=== PATIENT | female | born 1975 | race Caucasian/White ===

== ENCOUNTER 2019-03-06 15:14 | Outpatient (CLI) | payer BC, SELFPAY ==
--- NOTE | 2019-03-07 08:15 | DI.RAD_ITS ---
SYMPTOM/DIAGNOSIS: ACUTE LT KNEE PAIN, M25.562, H/O FALL LEFT KNEE: Three views were obtained. No bony or soft tissue abnormality is seen.
== END 2019-03-06 15:34 ==
PROVIDERS: PCP Nurse Practitioner Family; Visit Provider Nurse Practitioner Family
DX: M25.562 Pain in left knee (principal)
CPT/HCPCS: 73562

== ENCOUNTER 2020-08-06 10:11 | Outpatient (REF) | payer BC, SELFPAY ==
--- NOTE | 2020-08-06 09:37 | SOFT_PTH ---
PATIENT: Desiree Linares LOC: [facility]#:[id number] AGE/SX: 44/F ROOM: RE08/06/[address]: Debra Raymundo : 1975 BED: DIS: 08/06/2020 SPEC #: [id number] RECD: 08/09/20 12:48 STATUS: ANDREW REBertrand #: [id number] MICHEL: 08/06/20 09:[address]: Debra Raymundo DEPT: Surgical Specimen RECD BY: Adrianne Dennis Tissues: 1 - SOFT TISSUE [facility] Procedures: GROSS AND MICRO LEVEL 3 Comments: [id number]
== END 2020-08-06 10:31 ==
LOC: NCHCN 10:11
PROVIDERS: PCP Nurse Practitioner Family; Visit Provider Nurse Practitioner Family
DX: L91.8 Other hypertrophic disorders of the skin (principal)
CPT/HCPCS: 88304

== ENCOUNTER 2020-08-31 14:44 | Outpatient (REF) | payer BC, SELFPAY ==
[2020-09-03 16:25] LABS: Patient Race White; SARS-CoV-2 RNA Undetected (Undetected); SARS-CoV-2 Specimen Source Nasal
== END 2020-08-31 15:04 ==
LOC: NCHCN 14:44
PROVIDERS: PCP Nurse Practitioner Family; Visit Provider Physician Assistant
DX: J06.9 Acute upper respiratory infection, unspecified (principal)
CPT/HCPCS: U0003

== ENCOUNTER 2021-04-29 18:04 | Outpatient (REF) | payer BC, SELFPAY ==
[2021-04-30 08:51] LABS: Abs Immature Grans 0.01 10^3/uL (0.0-0.06); Absolute Basophil Count 0.04 10^3/uL (0.0-0.2); Absolute Eosinophil Count 0.16 10^3/uL (0.0-0.7); Absolute Lymphocyte Count 2.29 10^3/uL (1.2-3.4); Absolute Monocyte Count 0.41 10^3/uL (0.1-0.8); Absolute Neutrophil Count 3.02 10^3/uL (1.2-6.7); Basophils % 0.7; Eosinophils % 2.7; HCT 42.1 % (36.0-46.0); HGB 14.1 g/dL (11.2-15.7); Immature Grans % 0.2; Lymphocytes % 38.6; MCH 29.3 pg (27.0-33.0); MCHC 33.5 % (32.0-36.0); MCV 87.3 fL (80-95); MPV 9.9 fL (8.0-11.0); Monocytes % 6.9; Neutrophils % 50.9; Nucleated RBC 0 %; Platelet Count 264 10^3/uL (130-400); RBC 4.82 10^6/uL (3.93-5.22); RDW 12.1 % (11.7-14.6); RDW-SD 38.8 fL; WBC 5.93 10^3/uL (4.4-10.8)
[2021-04-30 09:28] LABS: Anion Gap 9.5 mmol/L (3-11); BUN 10 mg/dL (7-18); CO2 25.5 mmol/L (21.0-32.0); Calcium 9.1 mg/dL (8.5-10.1); Chloride 107 mmol/L (98-107); Estimated GFR 59.96 (mL/min/1.73m2); Glucose 89 mg/dL (74-106); Potassium 4.2 mmol/L (3.5-5.1); Sodium 142 mmol/L (136-145)
== END 2021-04-29 18:05 | disposition home or self-care (01) ==
LOC: LBN 18:04
PROVIDERS: PCP Nurse Practitioner Family; Visit Provider Physician Assistant Medical
DX: R42 Dizziness and giddiness (principal)
CPT/HCPCS: 80048; 85025

== ENCOUNTER 2021-07-04 19:15 | Outpatient (REF) | payer BC, SELFPAY | END 2021-07-04 19:16 | disposition home or self-care (01) | LOC: NCHCN 19:15 | PROVIDERS: PCP Nurse Practitioner Family; Visit Provider Family Medicine | DX: R35.0 Frequency of micturition (principal) | CPT/HCPCS: 87077; 87086; 87186 ==

== ENCOUNTER 2021-08-16 10:47 | Outpatient (REF) | payer BC, SELFPAY ==
--- NOTE | 2021-08-16 10:30 | PAPFT_PTH ---
PATIENT: Desiree Linares LOC: [facility] U#:[id number] AGE/SX: 45/F ROOM: RE08/16/[address]: JOANA Harley : 1975 BED: DIS: 08/16/2021 SPEC #: [id number] RECD: 08/16/21 12:55 STATUS: ANDREW REQ #: [id number] MICHEL: 08/16/21 10:[address]: Bronwyn Mosley DEPT: [facility] Cytology RECD BY: Adrianne Dennis ENTERED: 08/16/21 12:55 SP TYPE: PAPFT OTHR DR: Debra Raymundo Tissues: 1 - CX/ENDOCX FOR PAP SMEARS Procedures: PAP THIN PREP/UVM Screening HPV DNA PROBE Comments: [id number]
[2021-08-17 16:09] LABS: Chlamydia Result Negative (Negative); GC Result Negative (Negative)
== END 2021-08-16 10:48 | disposition home or self-care (01) ==
LOC: LBN 10:47
PROVIDERS: PCP Nurse Practitioner Family; Visit Provider Nurse Practitioner Family
DX: Z11.3 Encounter for screening for infections with a predominantly sexual mode of transmission (principal); Z12.4 Encounter for screening for malignant neoplasm of cervix; Z11.51 Encounter for screening for human papillomavirus (HPV)
CPT/HCPCS: 87491; 87591; 88142; 87624

== ENCOUNTER 2021-10-07 01:35 | Outpatient (CLI) | payer BC, SELFPAY ==
--- NOTE | 2021-10-07 15:45 | DI.MAMMO_ITS ---
Exam(s) MAMMO SCREENING EXAM: MAMMO SCREENING CLINICAL HISTORY: screening,Z12.39. TECHNIQUE: Bilateral full field digital CC and MLO mammographic images were obtained with 3D tomosyn thesis and utilizing computer aided detection (CAD). COMPARISON: Prior mammograms dating back to 2015, the most recent being January 2018. Prior left breast ultrasound performed 03/27/2016 was also reviewed. FINDINGS: There are no CAD designations. Asymmetric density medially in left breast is unchanged from prior studies. There are no new spiculated masses nor malignant appearing microcalcification groups. There is no significant architectural distortion nor skin thickening-retraction. IMPRESSION: Stable benign-appearing findings. No radiographic evidence of malignancy BI-RADS Category 2 - Benign Findings Breast Density - Category B - Scattered areas of fibroglandular density Breast density Category C or D implies that the patient has dense breast tissue. Dense breast tissue can make it harder to find cancer on a mammogram. Dense breast tissue is also associated with an incr eased risk of breast cancer. This information about the result of the mammogram report was provided to the patient to raise their awareness. Use this report when you speak with the patient about their risks for breast cancer, which includes their family history. At that time, you may recommend additional screening tests (Ultrasoun d or MRI) as these tests may add significant information. A negative radiographic report should not delay biopsy if a dominant or clinically suspicious mass is present. Up to ten percent of cancers are not identified on mammography. A negative report may reinforce clinical impression. Adenosis and dense breasts may obscure an underlying neoplasm. False positive reports average 6 to 10%. Patient will receive a letter notifying them of these results.
== END 2021-10-07 01:55 ==
PROVIDERS: PCP Nurse Practitioner Family; Visit Provider Nurse Practitioner Family
DX: Z12.31 Encounter for screening mammogram for malignant neoplasm of breast (principal)
CPT/HCPCS: 77063; 77067

== ENCOUNTER 2021-10-26 13:59 | Outpatient (REF) | payer BC, SELFPAY ==
[2021-10-26 20:04] LABS: TSH (W/Ref FT4) 0.92 uIU/mL (0.36-3.74)
[2021-10-28 10:49] LABS: Hepatitis C Ab w Rflx HCV PCR Negative (Negative)
[2021-10-28 14:25] LABS: HIV-1/2 Ag & Ab Screen Reactive (Negative)
[2021-10-31 09:10] LABS: HIV 1 Ab Diff Negative (Negative); HIV 2 Ab Diff Negative (Negative)
== END 2021-10-26 14:00 | disposition home or self-care (01) ==
LOC: NCHCN 13:59
PROVIDERS: PCP Nurse Practitioner Family; Visit Provider Family Medicine
DX: Z00.00 Encounter for general adult medical examination without abnormal findings (principal); R63.4 Abnormal weight loss; Z11.4 Encounter for screening for human immunodeficiency virus [HIV]; Z11.59 Encounter for screening for other viral diseases
CPT/HCPCS: 86701; 86702; 86803; 87389; 84443

== ENCOUNTER 2021-11-28 15:21 | Outpatient (REF) | payer BC, SELFPAY ==
[2021-11-28 16:07] LABS: Bilirubin Negative (Negative); Blood Large (Negative); Clarity Sl Cloudy (Clear); Glucose Negative (Negative); Ketones Negative (Negative); Leukocyte Esterase Small (Negative); Nitrite Negative (Negative); Specific Gravity 1.025 (1.005-1.025); Urobilinogen 0.2 EU/dL (Up TO 0.2); pH 6.5 (5-8)
[2021-11-28 16:13] LABS: Bacteria Moderate HPF (Negative); C & S Indicated? No/Sq. Contamination; Casts Negative LPF (Negative); Crystals Negative HPF (Negative); Epithelial Cells Many HPF (Negative); Mucus Trace (Negative); RBC >50 HPF (0-2); WBC 20-50 HPF (0-5)
== END 2021-11-28 15:22 | disposition home or self-care (01) ==
LOC: NCHCN 15:21
PROVIDERS: PCP Nurse Practitioner Family; Visit Provider Nurse Practitioner Family
DX: R30.0 Dysuria (principal)
CPT/HCPCS: 81003; 81015

== ENCOUNTER 2022-10-25 10:37 | Outpatient (REF) | payer BC, SELFPAY ==
[2022-10-27 11:16] LABS: COVID-19 RT-PCR UVMMC Result Negative (Negative)
== END 2022-10-25 10:38 | disposition home or self-care (01) ==
LOC: LBN 10:37
PROVIDERS: PCP Nurse Practitioner Family; Visit Provider Physician Assistant Medical
DX: Z20.822 Contact with and (suspected) exposure to COVID-19 (principal); R05.8 Other specified cough
CPT/HCPCS: U0003

== ENCOUNTER 2023-01-31 09:56 | Outpatient (REF) | payer BC, SELFPAY ==
[2023-01-31 15:10] LABS: Calculated LDL 136 mg/dL (<100); Cholesterol 207 mg/dL (<200); HDL Cholesterol 40 mg/dL (40-60); Triglyceride 158 mg/dL (<150)
== END 2023-01-31 09:57 | disposition home or self-care (01) ==
LOC: NCHCN 09:56
PROVIDERS: PCP Nurse Practitioner Family; Visit Provider Family Medicine
DX: Z00.00 Encounter for general adult medical examination without abnormal findings (principal); Z13.220 Encounter for screening for lipoid disorders
CPT/HCPCS: 80061

== ENCOUNTER → 2023-08-13 04:04 | Outpatient (CLI) | payer BC, SELFPAY ==
--- NOTE | 2023-08-13 | DI.MAMMO_ITS ---
Exam(s) MAMMO SCREENING EXAM: MAMMO SCREENING CLINICAL HISTORY: SCREENING, Z12.31 TECHNIQUE: Mammograms were interpreted according to the usual protocol including computer analysis w [employer] CAD system, tomosynthesis and C-view imaging. COMPARISON: 2015 through 2020 FINDINGS: The breasts are composed of scattered fibroglandular densities, Breast Density category B. No suspicious masses or suspicious microcalcifications are seen. No skin thickening or abnormal axillary lymph nodes are seen. There has been no significant change from prior exams. IMPRESSION: BI-RADS Category 1, Negative mammogram Yearly screening mammography is recommended. Breast Density - Category B, scattered fibroglandular densities. A negative radiographic report should not delay biopsy if a dominant or clinically suspicious mass is present. Up to ten percent of cancers are not identified on mammography. A negative report may reinforce clinical impression. Adenosis and dense breasts may obscure an underlying neoplasm. False positive reports average 6 to 10%. Patient will receive a letter notifying them of these results.
== END ==
PROVIDERS: PCP Nurse Practitioner Family; Visit Provider Family Medicine
DX: Z12.31 Encounter for screening mammogram for malignant neoplasm of breast (principal)
CPT/HCPCS: 77063; 77067

== ENCOUNTER 2023-12-12 12:07 | Outpatient (REF) | payer BC, SELFPAY ==
[2023-12-12 15:07] LABS: HCT 41.4 % (36.0-46.0); HGB 14.3 g/dL (11.2-15.7); MCHC 34.5 % (32.0-36.0); MCV 90 fL (80-95); Platelet Count 259 10^3/uL (130-400); RBC 4.62 10^6/uL (3.93-5.22); RDW 11.9 % (11.7-14.6); RDW-SD 38.6 fL; WBC 5.99 10^3/uL (4.4-10.8)
[2023-12-12 15:55] LABS: TSH (W/Ref FT4) 1.07 uIU/mL (0.36-3.74)
== END 2023-12-12 12:08 | disposition home or self-care (01) ==
LOC: NCHCN 12:07
PROVIDERS: PCP Family Medicine; Visit Provider Family Medicine
DX: Z13.220 Encounter for screening for lipoid disorders (principal); Z00.00 Encounter for general adult medical examination without abnormal findings
CPT/HCPCS: 85027; 84443

== ENCOUNTER 2024-03-14 09:34 | Day surgery (SDC) | payer BC, SELFPAY ==
--- NOTE | 2024-03-13 16:41 | COLE_ITS ---
Date of service: 03/14/24 Time of Service: 12:15 Colonoscopy Report Date of procedure: 03/14/24 Pre-op diagnosis general: CRC screening Post-op diagnosis procedure note: other (Adenomatous polyp) Surgeon: Marisol Perez Anesthesia Type: General:No Airway Estimated blood loss (mL): 1 Pathology: other Complications: None Disposition: same day Prep: Miralax/Dulcolax Retraction Time: 17 Procedure Description: After informed consent was obtained the patient was taken to the procedure room and placed in a left decubitous position. Monitors were applied and a time out was done. The patients name, date of , procedure, allergies to medications and metal in their body was reviewed. The patient was then sedated. Once sedated and comfortable a rectal exam was done. External exam was normal. Internal exam revealed a normal sphincter tone and no palpable masses. The scope was then introduced and retrofelexed. Grade II internal hemorrhoids X 1 column were identified. The scope was then advanced to the cecum w/out difficulty. The TI and appendiceal orifice were identified. The scope was then slowly retracted over 17 minutes back into the rectum. She had multiple polyps that we removed. She had 6 polyps that we removed. All of them are flat 0.5 cm polyps. She had 1 removed at 70 cm, 1 removed at 80 cm, 2 removed at 20 cm, and 2 removed in the rectum. All specimens are retrieved and no bleeding is noted. There is no signs of any diverticula or AVMs. The mucosa is pink and healthy with a normal vascular pattern. The scope was removed and the patient was woken up and taken back to Same day surgery in stable condition. The patient tolerated the procedure well and there were no immediate complications. Follow up: The patient should follow up in 5-7 years unless they develop changes in bowel habits or other new gastrointestinal complaints. Hartford Bowel Prep Hartford Bowel Prep Right Colon: 3 Left Colon: 3 Transverse Colon: 3 Total Score: 9
--- NOTE | 2024-03-13 16:42 | PDOC.DSDIS_ITS ---
Date of service: 03/14/24 Time of Service: 12:19 Discharge Plan Disposition Patient Disposition: Home Condition: Good Discharge Details Reason For Visit: CRC screening Attending Provider: Marisol Perez Primary Care Provider: Maggie Cruz Home Meds and New Rx's Prescriptions: Continued albuterol sulfate [ProAir HFA] 90 mcg/actuation HFA aerosol inhaler 200 puff Inhalation Q6H PRN (Reason: shortness of breath or wheezing) Rx Instructions: with spacer rizatriptan 10 mg tablet,disintegrating See Rx Instructions PO .COMPLEX Rx Instructions: take 1 tab at onset of headache; if no relief may repeat 1 tab after at least 2 hrs; max = 3 tabs/24 hr PO Mirena 20 mcg/24 hours (7 yrs) 52 mg intrauterine device 1 insert intrauterine ONCE Qty: 1 0RF Rx Instructions: as a single dose venlafaxine 37.5 mg capsule,extended release 24hr 75 mg PO DAILY budesonide-formoterol [Symbicort] 80-4.5 mcg/actuation HFA aerosol inhaler 2 puff inhalation BID PRN loratadine [Allergy Relief (loratadine)] 10 mg tablet 10 mg PO DAILY PRN cholecalciferol (vitamin D3) 25 mcg (1,000 unit) capsule 25 mcg PO DAILY ibuprofen [Advil] 200 mg tablet 200 mg PO Q6H PRN bupropion HCl [Wellbutrin] 100 mg tablet 300 mg PO DAILY Discontinued bisacodyl [Dulcolax (bisacodyl)] 5 mg tablet,delayed release (DR/EC) 5 mg PO ONCE Qty: 4 0RF Rx Instructions: Take per colonoscopy instructions provided by ordering providers office polyethylene glycol 3350 17 gram/dose powder 17 g PO ONCE Qty: 238 0RF Rx Instructions: Take per colonoscopy instructions provided by ordering providers office Discharge Instructions Additional Instructions: DSU Colonoscopy Post- Op Instructions Instructions for Everyone who is given Anesthesia: For your safety, please do the following for the next twenty-four (24) hours: *Do Not operate a motor vehicle (car, truck, motorcycle, etc.) *Do Not drink alcoholic beverages or use any recreational drugs for the first 24 hours or while taking pain medications. The medications in your body may have a reaction that can be dangerous. *Do Not make any important decisions or sign any important papers. Findings: X 6 polyps Follow up: My office will send you a letter in 2 to 3 weeks time with the results and when we want to repeat the colonoscopy, most likely 5 to 7 years. 1. No lifting over 20 pounds or strenuous activity for the first 24 hours after your procedure. After 24 hours there are no restrictions on your activity but you may feel fatigued for a few days. 2. After you arrive home you may have a light meal and return to your normal diet as you can tolerate it without feeling sick to your stomach. 3. You may have a bloated, gaseous feeling in your belly (abdomen) after a colonoscopy. Passing gas and belching will help. Walking or lying down on your left side with your knees flexed may relieve the discomfort. Call the office at [phone] (Office) or [phone] (Hospital) right away if you notice any of the following: a.Vomiting of blood or ?coffee ground stools?. b.Rectal bleeding 1Tbsp, blood clots or continuous bleeding. c.Severe belly (abdominal) pain. d.A hard distended belly (abdomen) and an inability to pass gas. 4. Please don?t expect to have a normal BM (bowel movement) for 2-3 days after your procedure. 5. If there are questions regarding the findings of your procedure, please contact your doctor 6. If you are unable to contact your doctor with a problem, contact the hospital at [phone]. 7. Continue all your regular medications unless directed otherwise. I understand the above instructions and have no questions. Signature of Patient or Adult Escort Name of Responsible Adult Escort Signature of Nurse Date/Time Stand Alone Forms: Anesthesia Discharge Scott Desai (DSU) Activity:: see above Diet:: see above Discharge Orders Discharge Orders: Discharge Order (Routine); Ordered 03/14/24 Ordered By: Marisol Perez Discharge Data Discharge Date/Time-TO BE ENTERED AT DEPARTURE: 03/14/24 13:21 DS: Diagnosis Discharge Diagnosis (1) Migraine with aura: (2) Depression: Status: Chronic (3) ADHD: Status: Acute (4) Anxiety: Status: Chronic (5) Asthma: Status: Chronic (6) Screening for malignant neoplasm of colon performed: Status: Acute Asessment and Plan: The patient is seen and examined after their colonoscopy.? The patient has been able to pass gas.? They are not having abdominal pain.? They have been able to tolerate liquids and a snack.? They do not have any nausea or vomiting.? They are not having any chest pain or shortness of breath.??? They are not having any rectal bleeding. Their vital signs have been stable-see nursing notes. We discussed findings during their colonoscopy, and any biopsies that were done/polyps that were removed. The patient will be sent a letter with any biopsy results, and when to repeat the colonoscopy.-see discharge instructions. Patient was given explicit instructions to follow-up regarding colonoscopy-refer to discharge instructions.? We reviewed resumption of medications. Patient verbalized understanding and discharged in stable and satisfactory condition- See nursing notes.
[2024-03-14 09:59] VITALS: BP 133/90; PULSE 91; RESP 16; TEMP 36.3; O2SAT 97
[2024-03-14] MEDS: Lactated Ringers 1,000 ML 80 ML IV (10:05)
--- NOTE | 2024-03-14 11:08 | W.ANESPRE ---
General Info Date of Service Date Performed: 03/14/24 Height: 5 ft 6 in Weight: 87.7 kg Body Mass Index (BMI): 31.1 Surgical Procedure: Operation Date: 03/14/24 10:35 Proposed Procedure Side Surgeon jenaro Perez, Meds Allergies and Home Medications Allergies Allergy/AdvReac Type Severity Reaction Status Date / Time Penicillins AdvReac Unknown Other (See Verified 03/14/24 09:42 Comment) azithromycin AdvReac Other (See Verified 03/14/24 09:42 Comment) Home Medication Medication Instructions Recorded albuterol sulfate 90 mcg/actuation 200 puff inhalation Q6H PRN 08/16/21 aerosol inhaler (ProAir HFA) shortness of breath or wheezing rizatriptan 10 mg disintegrating See Rx Instructions PO .COMPLEX 08/16/21 tablet bupropion HCl 100 mg tablet 300 mg PO DAILY 08/18/21 (Wellbutrin) levonorgestrel 21 mcg/24 hr (up to 1 insert intrauterine ONCE #1 ea 08/18/21 8 years) 52 mg intrauterine device (Mirena) budesonide-formoterol HFA 80 2 puff inhalation BID PRN 02/05/24 mcg-4.5 mcg/actuation aerosol inhaler (Symbicort) cholecalciferol (vitamin D3) 25 25 mcg PO DAILY 02/05/24 mcg (1,000 unit) capsule ibuprofen 200 mg tablet (Advil) 200 mg PO Q6H PRN 02/05/24 loratadine 10 mg tablet (Allergy 10 mg PO DAILY PRN 02/05/24 Relief (loratadine)) venlafaxine 37.5 mg 75 mg PO DAILY 02/28/24 capsule,extended release 24 hr Current Visit Medications: Current Medications Generic Name Dose Route Start Last Admin Trade Name Freq PRN Reason Stop Dose Admin Hyoscyamine Sulfate 0.125 mg 03/14/24 04:39 Hyoscyamine 0.125 Mg Sl/Oral/Chew SL 04/13/24 04:38 DIRECTED PRN Ringer's Solution 1,000 mls @ 80 mls/hr 03/14/24 06:00 03/14/24 10:05 IV 03/14/24 23:59 80 mls/hr INFUSION JEANETH Administration IV Miscellaneous Supplies 1 each 03/14/24 06:00 Iv Access IV 03/14/24 23:59 DIRECTED JEANETH Ondansetron HCl 4 mg 03/14/24 04:39 Ondansetron 4 Mg/2 Ml Vial IVP 04/13/24 04:38 Q4H PRN PRN Nausea / Vomiting Sodium Chloride 0 ml 03/14/24 06:00 Normal Saline Flush 10 Ml Syr IV 03/14/24 23:59 PRN PRN Sodium Chloride 0 ml 03/14/24 06:00 Normal Saline 10 Ml Vial IJ 03/14/24 23:59 DIRECTED PRN Sterile Water 0 ml 03/14/24 06:00 Water,Injection,Sterile 10 Ml Vial IJ 03/14/24 23:59 DIRECTED PRN PFSH Active Problems Active Problems: Problem Status Onset Code Screening for malignant neoplasm of colon performed Z12.11 Anxiety F41.9 Skin tag L91.8 Asthma J45.909 ADHD F90.9 IUD (intrauterine device) in place Z97.5 Contraception Z30.9 Depression F32.A Medical History Medical History Migraine with aura Tobacco Smoking/Tobacco Use Status: Former Tobacco Use Alcohol Alcohol Intake: current Alcohol intake frequency: a few times a week Substance Use Substance use: Current Sobriety Substance use type: former substance user Prental History History 2 Para 2 Hx # Term Pregnancies 2 Multiple births Hx # Pregnancies Ectopic pregnancies AB induced Hx Number of Living Children 2 AB spontaneous Vital Signs and Lab Results Vital Signs Most Recent Vital Signs in EMR: Most Recent Vital Signs Temp Pulse Resp BP Pulse Ox 36.3 C L 91 H 16 133/90 97 03/14/24 09:59 03/14/24 09:59 03/14/24 09:59 03/14/24 09:59 03/14/24 09:59 Lab Results Blood Type / Crossmatch: No Data to Display Complete Blood Count: No Data to Display Complete Metabolic Panel: No Data to Display Liver Function Panel: No Data to Display Coagulation Panel: No Data to Display Cardiac Panel: No Data to Display Arterial Blood Gas: No Data to Display Venous Blood Gas: No Data to Display Pancreas Panel: No Data to Display Thyroid Panel: No Data to Display Infectious Disease: No Data to Display Blood Cultures: No Data to Display Toxicology Panel: No Data to Display Panel: No Data to Display Imaging and Studies Imaging and Studies Study information below may be from another EMR and interpreted by another provider. Please see original notes in EMR for more complete details. Pulmonary Function Summary: 01/21/2015: Anesthesia Assessment and Plan Anesthesia History Personal History: No History of Anesthesia Complications Family History: No Family History of Anesthesia Complications Exercise Tolerance Exercise Tolerance: Metabolic Equivalents>4 Pertinent Negatives Pertinent Negatives: No Symptoms of GERD, No Major Cardiovascular Symptoms or Complaints and No Major Pulmonary Symptoms or Complaints Cardiac & Pulmonary Exam Cardiac Exam: Normal S1/S2 Heart Sounds Pulmonary Exam: Wheezing Present (2 puffs albuterol administered prior to anesthesia) Implantable Cardiac Device Does patient have a Pacemaker or an ICD?: No Airway Exam Known Difficult Airway: No Mallampati Class: 2 Mouth Opening: Normal (> 3cm) Thyromental Distance: Greater than 3 cm Neck Range of Motion: Full ROM Neck Circumference: Normal Teeth Condition: Normal Dentition ASA Classification ASA Score: ASA 2 Emergency Case?: No NPO Status NPO Status: NPO Clears >2 hours, Solids >8 hours Status Status: Negative HCG Anesthesia Plan Resuscitation Status: Full Code Anesthesia Technique: General Anesthesia Airway Planned: Natural Airway Monitors Used: Standard Monitors
[2024-03-14 11:11] VITALS: BMI 31.1
--- NOTE | 2024-03-14 11:34 | BOWEL_PTH ---
PATIENT: Desiree Linares LOC: [facility] U#:[id number] AGE/SX: 48/F ROOM: RE03/14/[address]: Marisol Perez : 1975 BED: DIS: 03/14/2024 SPEC #: [id number] RECD: 03/14/24 12:59 STATUS: ANDREW REBertrand #: [id number] MICHEL: 03/14/24 11:[address]: Marisol Perez DEPT: Surgical Specimen RECD BY: Adrianne Dennis ENTERED: 03/14/24 13:00 SP TYPE: Bowel OTHR DR: Maggie Cruz Tissues: 1 - BIOPSY BOWEL 2 - BIOPSY BOWEL 3 - BIOPSY BOWEL 4 - BIOPSY BOWEL Procedures: GROSS AND MICRO LEVEL 4 Comments: [id number]
[2024-03-14 12:04] VITALS: BP 115/86; PULSE 88; RESP 16; TEMP 36.2; O2SAT 99
[2024-03-14 12:33] VITALS: BP 135/95; PULSE 86; RESP 18; TEMP 36.7; O2SAT 97
--- NOTE | 2024-03-14 13:34 | W.ANESPOSTOP ---
Postoperative Evaluation Date, Time and Location Date Performed: 03/14/24 Time Performed: 12:04 Patient Location: Day Surgery Unit Vital Signs Most Recent Imported Vital Signs: Most Recent Vital Signs Temp Pulse Resp BP Pulse Ox 36.7 C 86 18 135/95 H 97 03/14/24 12:33 03/14/24 12:33 03/14/24 12:33 03/14/24 12:33 03/14/24 12:33 Pain Score Most Recent Pain Score: Most Recent Pain Score Pain Level 0 03/14/24 12:33 Assessment Mental Status: Awake (Alert & Oriented to Patient Baseline) Airway and Respiratory Function: Patent airway with normal (patient baseline) respiratory exam Cardiovascular Function: Hemodynamically Stable Hydration Status: Adequately Hydrated Nausea & Vomiting: No Nausea or Vomiting Pain: Pt. Denies Any Pain Peripheral Nerve Block: Patient did not receive a nerve block
== END 2024-03-14 13:21 | disposition home or self-care (01) ==
LOC: SUR 09:34
PROVIDERS: PCP Family Medicine; Visit Provider Surgery
PROC: 0DJD8ZZ Inspection of Lower Intestinal Tract, Via Natural or Artificial Opening Endoscopic (ICD-10-PCS; CPT 45378; principal; 2024-03-14 10:30)
DX: J45.909 Unspecified asthma, uncomplicated; Z12.11 Encounter for screening for malignant neoplasm of colon; Z87.891 Personal history of nicotine dependence; D12.4 Benign neoplasm of descending colon; K62.1 Rectal polyp
CPT/HCPCS: 45380; 88305; J2001; J2704; J3010

== ENCOUNTER 2025-09-08 11:21 | Outpatient (REF) | payer BC, SELFPAY ==
[2025-09-09 11:45] LABS: Chlamydia Result Negative (Negative); GC Result Negative (Negative)
== END 2025-09-08 11:22 | disposition home or self-care (01) ==
LOC: LBN 11:21
PROVIDERS: PCP Family Medicine; Visit Provider Nurse Practitioner Women's Health
DX: N76.0 Acute vaginitis (principal); Z11.3 Encounter for screening for infections with a predominantly sexual mode of transmission
CPT/HCPCS: 87491; 87591; 87480; 87510; 87660

== ENCOUNTER → 2025-10-15 01:09 | Outpatient (CLI) | payer BC, SELFPAY ==
--- NOTE | 2025-10-15 06:45 | DI.MAMMO_ITS ---
Exam(s) MAMMO SCREENING EXAM: MAMMO SCREENING CLINICAL HISTORY: screening,z12.39 TECHNIQUE: Mammograms were interpreted according to the usual protocol including computer analysis with CAD system, tomosynthesis and C-view imaging. COMPARISON: 2015 through 2022 FINDINGS: The breasts are composed of scattered fibroglandular densities, Breast Density category B. No suspicious masses or suspicious microcalcifications are seen. No skin thickening or abnormal axillary lymph nodes are seen. There has been no significant change from prior exams. IMPRESSION: BI-RADS Category 1, Negative mammogram Yearly screening mammography is recommended. Breast Density - Category B - There are scattered areas of fibroglandular density. Breast density Category C or D implies that the patient has dense breast tissue. Dense breast tissue can make it harder to find cancer on a mammogram. Dense breast tissue is also associated with an increased risk of breast cancer. This information about the result of the mammogram report was provided to the patient to raise their awareness. Use this report when you speak with the patient about their risks for breast cancer, which includes their family history. At that time, you may recommend additional screening tests (Ultrasound or MRI) as these tests may add significant information. A negative radiographic report should not delay biopsy if a dominant or clinically suspicious mass is present. Up to ten percent of cancers are not identified on mammography. A negative report may reinforce clinical impression. Adenosis and dense breasts may obscure an underlying neoplasm. False positive reports average 6 to 10%. Patient will receive a letter notifying them of these results.
== END ==
LOC: DI 01:09
PROVIDERS: PCP Family Medicine; Visit Provider Nurse Practitioner Women's Health
DX: Z12.31 Encounter for screening mammogram for malignant neoplasm of breast (principal)
CPT/HCPCS: 77063; 77067